=== PATIENT | male | born 1985 | race Caucasian/White ===

== ENCOUNTER → 2016-05-12 | Outpatient (CLI) | payer OTHER, MEDICAID ==
--- NOTE | 2016-05-12 16:52 | DI ---
Indication: ITS.REASON: M25.512 PAIN IN LEFT SHOULDER PROCEDURE: SHOULDER LEFT 2-3 VIEWS: Encounter: Initial Comparison: None Findings: There is a small nondisplaced fracture of the greater tuberosity of the humerus. No additional acute fracture or dislocation seen. Acromioclavicular joint space is normal. Impression: Closed posttraumatic fracture of the greater tuberosity of the humerus. .
== END ==
LOC: IMA 16:09
PROVIDERS: ATTEND Family Medicine
DX: S42.255A Nondisplaced fracture of greater tuberosity of left humerus, initial encounter for closed fracture (principal); V87.8XXA Person injured in other specified noncollision transport accidents involving motor vehicle (traffic), initial encounter; Y93.89 Activity, other specified; Y92.414 Local residential or business street as the place of occurrence of the external cause; Y99.9 Unspecified external cause status; M25.512 Pain in left shoulder